=== PATIENT | male | born 1945 ===

== ENCOUNTER 2017-03-28 18:04 | Emergency (ER) | payer SELFPAY ==
--- NOTE | 2017-03-28 18:49 | EDPHY ---
H & P Time Seen by Provider: 03/28/17 18:40 HPI/ROS: CHIEF COMPLAINT: Needs a catheter HISTORY OF PRESENT ILLNESS: The patient is a 71 y/o male with a history of chronic urinary retention requests a urinary catheter. He lives in [place] and works in [place]. Today he forgot his catheter supplies when he left his home in [place]. He hasn't urinated since 4:00 AM, 14 hours ago. Now c/o moderate lower abd fullness and urge to urinate. No dysuria, fever, back pain. Past Medical/Surgical History: Self catheterizes Social History: Works as a massage therapist, lives in [place], works in [place] Smoking Status: Never smoked Physical Exam: General Appearance: Alert, pleasant Eyes: Pupils equal and round, no conjunctival pallor ENT, Mouth: Mucous membranes moist Neck: Normal inspection Respiratory: Lungs are clear to auscultation Cardiovascular: Regular rate and rhythm Gastrointestinal: Abdomen is soft and non-tender, suprapubic distension Neurological: A&O, nonfocal exam Skin: Warm and dry Extremities: normal inspection Psychiatric: Mood and affect normal Constitutional: Initial Vital Signs Temperature (C) 36.7 C 03/28/17 18:30 Heart Rate 66 03/28/17 18:30 Respiratory Rate 16 03/28/17 18:30 Blood Pressure 173/96 H 03/28/17 18:30 O2 Sat (%) 96 03/28/17 18:30 O2 Delivery Mode Room Air Allergies/Adverse Reactions: No Known Allergies Allergy (Unverified 03/28/17 18:30) Home Medications: Medication Instructions Recorded NK [No Known Home Meds] 03/28/17 Medical Decision Making ED Course/Re-evaluation: Supplies for immediate use provided. He will be sent home with a spare urinary catheter. Departure - Departure Disposition: Home, Routine, Self-Care Clinical Impression: Urinary retention Condition: Good Instructions: Urinary Retention in Men (ED) Additional Instructions: 1 Follow up with your primary care provider for more supplies. 2. Return to the ED for worsening of condition. Referrals: DUSTY KING [Medical Doctor] - As per Instructions Report Scribed for: Michelle Combs Report Scribed by: Katie Baird Date of Report: 03/28/17 Time of Report: 18:44 Physician Review and Approval Statement: 03/28/17 18:44 Portions of this note were transcribed by a medical record transcriber. I personally performed a history, physical exam, medical decision making, and confirmed accuracy of information the transcribed note.
[2017-03-28 19:11] VITALS: BP 158/75; PULSE 78; RESP 18; TEMP 98.6; O2SAT 95
== END 2017-03-28 19:21 | disposition home or self-care (01) ==
DX: R33.9 Retention of urine, unspecified (principal)